=== PATIENT | male | born 1980 | race Caucasian/White ===

== ENCOUNTER 2018-09-10 02:15 | Emergency (ER) | payer OTHER, SELFPAY ==
[2018-09-10 02:34] VITALS: BP 121/78; PULSE 67; RESP 18; TEMP 36.9; O2SAT 98
[2018-09-10 02:45] VITALS: BP 121/78; PULSE 67; RESP 18; TEMP 36.9; O2SAT 98; BMI 29.2
[2018-09-10] MEDS: KETOROLAC 60 MG/2 ML VIAL IM (03:06)
--- NOTE | 2018-09-10 03:21 | ED_ITS ---
HPI - Extremity Injury (Lower) General Chief Complaint: Extremity Injury, Lower Stated Complaint: left knee injury Time Seen by Provider: 09/10/18 02:20 Source: patient Mode of arrival: ambulatory Limitations: no limitations History of Present Illness HPI Narrative: 29-year-old male, nonsmoker, otherwise healthy presents to the emergency department with a chief complaint of left knee pain, gradually worsening since climbing a few days ago. He was at an indoor climbing gym and had his left leg up in a rather awkward position and was putting abnormal pressure on his medial knee. He denies any high velocity injury and no direct trauma. He has no history of left knee injury. He is otherwise well. He complains of pain with range of motion but denies instability, swelling, redness or warmth. MD complaint: knee injury Onset (ago): day(s) Injury: Left: knee Type of Injury: hyperflexion Place: other ([place] [employer]) Severity: mild Relieving factors: rest Exacerbating factors: movement Other symptoms: none Related Data Allergies Allergy/AdvReac Type Severity Reaction Status Date / Time No Known Drug Allergies Allergy Verified 09/10/18 03:02 Review of Systems Review of Systems All systems reviewed & are unremarkable except as noted in HPI and below Constitutional Denies chills, Denies fever(s), Denies lethargy and Denies weakness Eyes Denies change in vision, Denies eye discharge, Denies irritation and Denies loss of vision ENT Ears, Nose, Mouth, and Throat: Denies change in voice, Denies neck pain and Denies sore throat Cardiovascular Denies chest pain, Denies irregular heart rhythm, Denies lightheadedness, Denies palpitations, Denies dyspnea, Denies dyspnea on exertion and Denies orthopnea Respiratory Denies cough, Denies dyspnea, Denies dyspnea on exertion and Denies wheezing Gastrointestinal Gastrointestinal: Denies abdominal pain, Denies change in bowel habits, Denies diarrhea, Denies nausea and Denies vomiting Genitourinary Denies hematuria, Denies flank pain, Denies urinary incontinence and Denies urinary urgency Musculoskeletal Reports limited range of motion and Denies neck pain Integumentary/Breasts Denies pruritus, Denies erythema, Denies rash and Denies wounds Neurologic Denies confusion, Denies loss of vision and Denies weakness Psychiatric Denies anxiety, Denies confusion, Denies depression, Denies homicidal ideation and Denies suicidal ideation Endocrine Denies palpitations Hematologic/Lymphatic Denies easy bruising Allergic/Immunologic Denies wheezing PFSH Social History Smoking Status: Never smoker Exam Narrative Exam Narrative: GEN: AOx3 and in mild distress EYES: Pupils are equal, round, and reactive to light and accommodation. Extraoccular muscles are intact bilaterally. There is no subconjunctival hemorrhage or exudate. CHEST: Lungs are clear to auscultation bilaterally and free of wheezes, rales, or rhonchi. Heart rate is regular rhythm, there are no murmurs, clicks, rubs, or gallops. There is no chest wall tenderness. ABD: Abdomen is soft and nontender. There is no guarding or rebound. Bowel sounds are normal in all 4 quadrants. There is no mass or organomegaly. EXT: Full but painful range of motion of the left knee. He does have some tenderness to palpation along the left medial joint line in the distribution of the MCL and medial meniscus. There is no effusion nor ligamentous instability noted. Anterior drawer test is intact. SKIN: Warm, pink, and dry. No erythema or rash Initial Vital Signs Initial Vital Signs: Vital Signs Temperature 98.5 F 09/10/18 02:34 Pulse Rate 67 09/10/18 02:34 Respiratory Rate 18 09/10/18 02:34 Blood Pressure 121/78 09/10/18 02:34 Pulse Oximetry 98 09/10/18 02:34 Course Orders Ordered: Discontinued Medications Ketorolac Tromethamine (Toradol) 60 mg IM NOW ONE Stop: 09/10/18 02:59 Last Admin: 09/10/18 03:06 Dose: 60 mg Vital Signs - 8 hr 09/10/18 02:34 09/10/18 02:45 Temperature 98.5 F 98.5 F Pulse Rate 67 67 Respiratory Rate 18 18 Blood Pressure 121/78 Blood Pressure [Right Arm] 121/78 Pulse Oximetry 98 98 MDM - Extremity Injury (Lower) Differential Diagnosis Likely acute internal derangement of knee MDM Narrative Medical decision making narrative: Patient reports no instability and has a rather benign exam of his knee. He had no direct trauma and does not warrant an x-ray. He most likely has a sprain or strain of his knee but was given extensive discharge instructions regarding return precautions moving forward Discharge Plan Departure Patient Disposition: Home Clinical Impression: Injury of knee, left Instructions: DI for Knee Sprain Activity Restrictions/Additional Instructions: *You have been diagnosed with [ Left knee injury ] *What to do: *Take medications as directed: over the counter motrin/ibuprofen *Early range of motion is likely to help you improve more quickly, DO NOT OVER DO IT. For ongoing pain after 1 week please follow up as you may need additional testing. *Return to ER if you should have any new, worsening or concerning symptoms Referrals: Dhaval Cowan MD [Physician] - Zachary Swift MD [Physician] - Lamin Dacosta MD [Physician] -
[2018-09-10 03:29] VITALS: BP 123/77; PULSE 64; RESP 16; O2SAT 99
== END 2018-09-10 03:30 | disposition home or self-care (01) ==
PROVIDERS: Emergency Provider Emergency Medicine
DX: S89.92XA Unspecified injury of left lower leg, initial encounter (principal); Y93.31 Activity, mountain climbing, rock climbing and wall climbing
CPT/HCPCS: 96372; 99282; 99283; J1885

== ENCOUNTER → 2018-11-15 09:39 | Outpatient (CLI) | payer OTHER, SELFPAY ==
--- NOTE | 2018-11-15 09:42 | DI.RAD.S_ITS ---
PROCEDURE: XR KNEE RT 3V INDICATIONS: Right knee pain TECHNIQUE: 3 views of the knee were acquired. COMPARISON: None. FINDINGS: Bones: No fractures or dislocations. No suspicious bony lesions. Soft tissues: No joint effusion. No suspicious soft tissue calcifications. IMPRESSION: Normal for age, source of current knee pain symptoms is not seen. Dictated by: Jono Be M.D. on 11/15/2018 at 10:01 Approved by: Jono Be M.D. on 11/15/2018 at 10:01
== END ==
PROVIDERS: Visit Provider Physician Assistant
DX: M25.561 Pain in right knee (principal)
CPT/HCPCS: 73562

== ENCOUNTER → 2018-11-16 11:13 | Outpatient (CLI) | payer OTHER, SELFPAY ==
--- NOTE | 2018-11-16 11:14 | DI.MRI.S_ITS ---
PROCEDURE: MR KNEE RT WO CON INDICATIONS: Right knee pain TECHNIQUE: Noncontrast sagittal PD fast spin echo and T2 fast spin echo with fat saturation, sagittal 3-D FLASH with fat saturation; coronal T1 spin echo and PD fast spin echo with fat saturation, and axial PD fast spin echo with fat saturation through the knee. COMPARISON: [facility], CR, XR KNEE RT 3V, 11/15/2018, 9:43. FINDINGS: Image quality: Diagnostic. Bones and joint: There is no acute fracture or dislocation. No suspicious osseous lesions are evident. No significant knee joint effusion is identified. There is no Ham's cyst. Mild irregularity of the hyaline articular cartilage is identified within the lateral and patellofemoral compartments. No large cartilaginous defects are identified. There likely are areas of cartilaginous fissuring. Cruciate ligaments: There is diffuse increased signal identified involving the anterior cruciate ligament. No full-thickness tear is identified. The posterior cruciate ligament is intact and otherwise unremarkable. Menisci: There is a complex tear identified involving the body and posterior horn of the medial meniscus a predominantly represents a horizontal tear through the body of the meniscus and extends from the periphery to the free edge with articular surface involvement. Along the periphery of the posterior horn of the medial meniscus there is a more vertically oriented tear that involves the femoral and tibial articular surfaces. This tear propagates to the posterior meniscal root with moderate grade partial-thickness tearing. Small adjacent para meniscal cysts are evident. The lateral meniscus is intact and otherwise within normal limits and unremarkable. No focal tethering is identified involving the lateral meniscus. Medial structures: The medial collateral ligament is thickened. A small amount of fluid is seen along the anterior margin of the medial collateral ligament, which could potentially be tracking from the level of the medial meniscal tear.. The semimembranosus tendon insertion is intact. The imaged portions of the pes anserinus tendons are unremarkable. No significant fluid is contained within the pes anserinus bursa. Lateral structures: The popliteal tendon is intact. The lateral collateral ligament proper (fibular collateral ligament) and the proximal tibiofibular ligaments are intact. The distal aspect of the biceps femoris tendon and the iliotibial band are intact. Anterior structures: The quadriceps and patellar tendons are intact. However, there is thickening involving the proximal patellar tendon, which is more pronounced along the medial aspect of the proximal patellar tendon. There is slight increased signal at its patellar attachment without significant tearing identified. There is no significant edema in the infrapatellar fat pad. IMPRESSION: 1. Complex tear of the medial meniscus with articular surface involvement. No displaced fragments are present. 2. Partial thickness tear of the anterior cruciate ligament may be subacute or chronic. 3. Ganglion cyst on the anterior aspect of the medial collateral ligament probably represents a para meniscal cyst. The possibility of a small cyst arising from the MCL is difficult to exclude. No obvious tearing of the MCL is evident. 4. Mild proximal patellar tendinopathy. 5. Early patellofemoral and lateral compartment chondromalacia. Dictated by: Felix Nascimento M.D. on 11/16/2018 at 11:19 Approved by: Felix Nascimento M.D. on 11/16/2018 at 11:23
== END ==
PROVIDERS: Visit Provider Physician Assistant
DX: M25.561 Pain in right knee (principal); S83.231A Complex tear of medial meniscus, current injury, right knee, initial encounter; S83.511A Sprain of anterior cruciate ligament of right knee, initial encounter; M67.461 Ganglion, right knee; M22.41 Chondromalacia patellae, right knee
CPT/HCPCS: 73721

== ENCOUNTER → 2020-08-26 12:40 | Outpatient (CLI) | payer OTHER, SELFPAY ==
--- NOTE | 2020-08-26 | DI.MRI.S_ITS ---
PROCEDURE: MR WRIST LT W CON INDICATIONS: Sprain of carpal joint of left wrist, initial enco TECHNIQUE: After the administration of 3-4 mL of dilute intra-articular Gadolinium contrast into the radiocarpal compartment, coronal T1 spin echo with fat saturation and T2 fast spin echo with fat saturation, axial T1 spin echo and T2 fast spin echo with fat saturation, sagittal T1 spin echo with and without fat saturation through the wrist. COMPARISON: [facility], CR, XR WRIST 3+ VIEWS LEFT, 08/17/2020, 9:06. [facility], , [place] WRIST INJECTION MR/CT LT, 08/26/2020, 13:01. FINDINGS: Image quality: Excellent. Bones and cartilage: The carpal bones are normally aligned. No bone marrow contusions or fractures. No evidence for avascular necrosis. Overlying cartilage surfaces appear normal. Carpal ligaments: The lunotriquetral ligament is intact. There is suggestion of full-thickness perforation involving dorsal and central portion of the scapholunate ligament with gadolinium extravasation into the mid-carpal compartment. The radioscaphocapitate and radiolunotriquetral ligaments appear intact. The arcuate ligament and short radiolunate ligament also appear normal. The dorsal intercarpal and radiotriquetral ligaments appear intact. On sagittal images, the pisohamate ligament appears intact. Triangular fibrocartilage complex: The triangular fibrocartilage disc, with its styloid and foveal lamina, appears intact. No gadolinium extravasation into the distal radioulnar joint. The adjacent meniscal homolog appears normal. The ulnar collateral ligament appears intact. The extensor carpi ulnaris tendon is normal in location and morphology. Tendons and soft tissues: The carpal tunnel structures appear normal, including the median nerve. The ulnar nerve appears normal within Guyon's canal. All six extensor tendon compartments demonstrate normal morphology, without pathologic tendon sheath fluid. No soft tissue ganglion cysts. IMPRESSION: 1. No marrow edema. No fracture or dislocation. 2. Full-thickness perforation involving dorsal and central component of scapholunate ligament with contrast extending to mid carpal compartment. 3. Rest of the wrist tendons and ligaments are intact. 4. Triangular fibrocartilage complex is intact. Dictated by: Josep Page M.D. on 08/26/2020 at 15:06 Approved by: Josep Page M.D. on 08/26/2020 at 15:52
--- NOTE | 2020-08-26 | DI.RAD.S_ITS ---
PROCEDURE: [place] WRIST INJECTION MR/CT LT INDICATIONS: Sprain of carpal joint of left wrist, initial enco COMPARISON: [facility], MR, MR WRIST LT W CON, 08/26/2020, 13:21. TECHNIQUE: After informed consent had been obtained, the wrist was examined fluoroscopically, and a site chosen for injection of the radiocarpal compartment from a dorsal approach. Skin was prepped and draped in a sterile fashion and 1% lidocaine infiltrated from the skin down to the articular surface. A hypodermic needle was then introduced into the articular space and a modest amount of contrast medium was instilled confirming intra-articular needle tip placement. This was followed by approximately 4 mL of a dilute gadolinium solution. Needle was removed and dressing was applied. The patient experienced no complications throughout the procedure and left the fluoroscopic suite in no apparent distress. FINDINGS: A single fluoroscopic spot image demonstrates intra-articular location to injected iodinated contrast. IMPRESSION: Successful fluoroscopic-guided administration of dilute Gadolinium solution for wrist MR arthrogram. Dictated by: Jitendra Shepard M.D. on 08/26/2020 at 15:29 Approved by: Jitendra Shepard M.D. on 08/26/2020 at 15:31
== END ==
PROVIDERS: Referring Provider Orthopaedic Surgery; Visit Provider Orthopaedic Surgery
DX: S63.512A Sprain of carpal joint of left wrist, initial encounter (principal); X58.XXXA Exposure to other specified factors, initial encounter
CPT/HCPCS: 20605; 73222; 76000

== ENCOUNTER → 2020-09-07 17:25 | Outpatient (ROUT) | payer OTHER, SELFPAY ==
[2020-09-09 06:33] LABS: COVID19 Sendout Not Detected (Not Detect)
== END ==
PROVIDERS: Visit Provider Physician Assistant
DX: Z11.59 Encounter for screening for other viral diseases (principal)
CPT/HCPCS: 87635

== ENCOUNTER 2020-09-10 08:47 | Day surgery (SDC) | payer OTHER, SELFPAY ==
[2020-09-07 08:06] VITALS: BMI 28.0
[2020-09-10] VITALS (9 sets, daily range): BP systolic 111–135; BP diastolic 65–83; PULSE 61–92; RESP 12–16; TEMP 36.4–37.4; O2SAT 94–99; BMI 28.5
[2020-09-10] MEDS: LACTATED RINGERS 1,000 ML 42 ML IV ×2 (09:35→12:27)
[2020-09-10] MEDS: CEFAZOLIN 2 GM/100 ML FROZ.PIGGY IV (10:38)
--- NOTE | 2020-09-10 11:02 | SUR.OPER ---
Supine on padded OR bed, head on pillow, right arm secured on padded arm board at <90 degrees abduction, left arm on large padded arm board (controlled by surgeon), legs uncrossed, safety belt at thigh, tape over blanket over lower legs.
[2020-09-10] MEDS: BUPIVACAINE 0.5% W/ EPI (PF) 30 ML VIAL INJ (11:29)
--- NOTE | 2020-09-10 12:24 | P.OP_ITS ---
Operative Date/Time/Diagnoses Date of procedure: 09/10/20 Time of procedure: 11:00 Pre-op diagnosis: Left scapholunate ligament Post-op diagnosis: same Procedure & Clinicians Procedure: Left scapholunate ligament reconstruction Same procedure as scheduled: Yes Indications: Ruptured scapholunate ligament Surgeon: Michele Arriola Click Yes if Unassisted: Yes Anesthesia Type: General Operative Notes Findings: Complete rupture of the scapholunate ligament with minimal diastasis but flexion of the scaphoid. No sign of any arthritis to the radiocarpal joint no sign of any carpal collapse Closure Type: primary Specimen(s): none sent Applied: graft(s) (Strip of the ECRB tendon ) and implant(s) (Three Arthrex anc hors) Estimated Blood Loss (mL): 5 Blood products transfused: none Tourniquet time (min): 77 Procedure in detail: On date of service, patient was met in the holding area where his operative site was signed and witnessed by the OR staff. The surgery is once again discussed with the patient in remaining questions or concerns he had were answered fully. Patient was taken back to the operating theater and placed on the operating table in a supine position. Great care was taken to ensure that all bony prominences were appropriately padded. A well-padded tourniquet was placed up along the upper extremity. Time-out was performed verifying patient's name, procedure, and operative site. The limb was prepped and draped in the normal sterile fashion. An Esmarch was used to exsanguinate the limb the tourniquet was turned up to 250 mm of mercury. Longitudinal incision was made. The incision was ulnar to the Gautam's tubercle. It was centered over the radiocarpal joint. Fifteen blade was used to incise through skin and fascial tissue. Sharp dissection was continued with a 15 blade until the extensor mechanism was identified. Branches of the superficial radial nerve were identified and protected as well as branches coming off ulnarly. Once we had the extensor mechanism identified and was split allowing a release of the EPL tendon. This was also done ulnarly opening up 4th extensor compartment and then done radially opening up the 2nd extensor compartment. This allowed us to retract the extensor tendons. We next took a small strip of tendon tissue from the ECR be which was then whip stitched and then set aside to be used later. Next, the radiocarpal joint was opened preserving the carpal ligaments. This gave us good visualization of the scapholunate interval. There was a complete rupture to the scapholunate ligament. But no sign of any radiocarpal arthritic process. K-wire was placed in to the scaphoid and 1 into the lunate and the scapholunate interval was reduced. There was quite a bit of flexion of the scaphoid which was reduced as well as extension of the lunate. These 2 K-wires were then held together to close down any diastasis. Another K-wire was placed between the scaphoid and the capitate to keep it from falling back into flexion. Next, 3 guidewires were placed 1 in the lunate and 2 in the scaphoid 1 by the scapholunate interval and then 1 very distally. C-arm used to verify reduction of the scapholunate interval as well as guidewire positioning. Once we were satisfied with the positioning cannulated drill was used to drill over the 3 guidewires. The bony hole tunnels were then copiously irrigated removing any remaining tissue. We then turned our attention back to our tendon graft. This plus suture tape was tenodesed into the 1st hole in the scaphoid. Then under tension this was then placed into the 2nd hole into the lunate going across the scapholunate interval 18 OD seen the attendant as well as the graft providing a solid repair of the scapholunate interval. Next, the tendon and suture material were then brought up to the distal hole into the scaphoid and retain noticed there to once again help keep the scaphoid from falling into flexion. C-arm was brought in to verify maintenance of reduction. The 2 reducing K-wires were removed and there was no gapping at the scapholunate interval once those K-wires were removed. We were able to flex and extend the wrist with no abnormal motion of the scapholunate interval been no sign of any diastasis. Good signs of a solid repair of the scapholunate interval. The wound was then copiously irrigated. The capsule was closed and repaired using 3-0 FiberWire. The extensor mechanism was closed with Vicryl recreating the 4th extensor compartment as well as the 3rd and 2nd extensor compartments. The rest of the wound was closed in layered fashion. Patient's hand and arm was cleaned dried and dressed. Patient was placed into a splint and taken to the PACU in stable condition. Complications: none Post-operative Condition: stable Disposition: PACU Plan for aftercare: Patient will be immobilized for a total of 6 weeks.
[2020-09-10] MEDS: HYDROMORPHONE 2 MG INJ IV (12:39)
[2020-09-10] MEDS: OXYCODONE/ACETAMINOPHEN 5/325 TABLET 1 TAB PO (12:41)
== END 2020-09-10 13:30 | disposition home or self-care (01) ==
PROVIDERS: Referring Provider Orthopaedic Surgery; Visit Provider Orthopaedic Surgery
PROC: (CPT 26540; principal; 2020-09-10 10:15)
DX: S63.512A Sprain of carpal joint of left wrist, initial encounter (principal); Y93.B2 Activity, push-ups, pull-ups, sit-ups
CPT/HCPCS: 25320; J0690; J1100; J1170; J2250; J2405; J2704; J3010

== ENCOUNTER 2021-01-09 15:58 | Emergency (ER) | payer OTHER, SELFPAY ==
[2021-01-09] VITALS (11 sets, daily range): BP systolic 136–152; BP diastolic 60–89; PULSE 74–97; RESP 16–18; TEMP 36.8; O2SAT 96–100; BMI 29.3
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
[2021-01-09 16:28] LABS: Add Manual Diff / Slide Review NO; Basophils Absolute Auto 0 /uL (0-100); Basophils Percent Auto 0.4 % (0-2); Eosinophils Absolute Auto 100 /uL (0-450); Eosinophils Percent Auto 0.5 % (2-4); Hematocrit 43.3 % (41-53); Hemoglobin 14.5 g/dL (13.5-17.5); Lymphocytes Absolute Auto 1800 /uL (1100-4500); Lymphocytes Percent Auto 14.1 % (25-40); Mean Corpuscular HGB Conc 33.4 % (30-36); Mean Corpuscular Volume 86.6 fL (80-100); Monocytes Absolute Auto 500 /uL (0-900); Monocytes Percent Auto 4.3 % (3-14); Neutrophils Absolute Auto 10100 /uL (1500-7000); Neutrophils Percent Auto 80.7 % (50-75); Platelet Count 310 X10^3/uL (150-400); Red Cell Distribution Width 13.6 % (11.6-14.8); White Blood Cell Count 12.5 X10^3/uL (4.5-11.0)
[2021-01-09 16:37] LABS: Alanine Aminotransferase 41 IU/L (<50); Albumin 4.8 g/dL (3.5-5.0); Albumin Globulin Ratio 1.6 (1.0-2.8); Alkaline Phosphatase 66 U/L (38-126); Aspartate Aminotransferase 43 IU/L (17-59); BUN Creatinine Ratio 20.6 (6-22); Bilirubin Total 0.4 mg/dL (0.2-1.3); Blood Urea Nitrogen 20 mg/dL (9-20); Calcium 9.4 mg/dL (8.4-10.2); Carbon Dioxide 24 mmol/L (22-32); Chloride 103 mmol/L (98-107); Estimated Glomerular Filt Rate > 60.0 mL/min (>60); Glucose 95 mg/dL (70-100); HEMOLYSIS 28 (0-50); Lipase 53 U/L (23-300); Potassium 3.6 mmol/L (3.4-5.1); Sodium 136 mmol/L (137-145); Total Protein 7.8 g/dL (6.3-8.2)
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
== END 2021-01-09 18:19 | disposition home or self-care (01) ==
PROVIDERS: Emergency Provider Emergency Medicine
DX: S09.90XA Unspecified injury of head, initial encounter (principal); S80.12XA Contusion of left lower leg, initial encounter; S70.211A Abrasion, right hip, initial encounter; S60.512A Abrasion of left hand, initial encounter; S60.511A Abrasion of right hand, initial encounter; M79.605 Pain in left leg; M79.671 Pain in right foot; V29.9XXA Motorcycle rider (driver) (passenger) injured in unspecified traffic accident, initial encounter
CPT/HCPCS: 36415; 70450; 73590; 73630; 80053; 81003; 83690; 85025; 99284

== ENCOUNTER 2021-10-03 12:28 | Emergency (ER) | payer OTHER, SELFPAY ==
[2021-10-03 13:00] VITALS: BP 113/69; PULSE 61; RESP 14; TEMP 36.6; O2SAT 98; BMI 29.0
== END 2021-10-03 15:35 | disposition left against medical advice (07) ==
DX: Z53.21 Procedure and treatment not carried out due to patient leaving prior to being seen by health care provider (principal)
CPT/HCPCS: 99281